=== PATIENT | male | born 1975 | race Caucasian/White ===

== ENCOUNTER 2022-12-29 09:53 | Day surgery (SDC) | payer OTHER, SELFPAY ==
[2022-09-29 11:10] VITALS: BMI 29.7
[2022-12-17 09:49] VITALS: BMI 28.5
[2022-12-29 11:45] VITALS: BP 157/101; PULSE 92; RESP 20; TEMP 36.7; O2SAT 100
[2022-12-29] MEDS: LACTATED RINGERS 1,000 ML 150 ML IV CONT (12:20)
--- NOTE | 2022-12-29 12:35 | P.PNAN_ITS ---
Anes - Initial Pre Proc Eval Procedure: Operation Date: 12/29/22 12:30 Proposed Procedures p Screening Colonoscopy - Aaron Clemons MD Date/Time: 12/29/22 12:35 Surgeon: Aaron Clemons MD Pre Op Diagnosis: History of colon polyp, Family HX colon cancer Patient Data Age: 47 Gender: M Height: 1.8 m Weight: 93.5 kg Allergies Allergy/AdvReac Type Severity Reaction Status Date / Time No Known Allergies Allergy Verified 12/29/22 11:18 Home Medications Medication Instructions Recorded Confirmed Type sodium,potassium,mag sulfates 17.5 See Rx Instructions PO .COMPLEX 09/29/22 12/29/22 Rx gram-3.13 gram-1.6 gram oral soln #354 mL (Suprep Bowel Prep Kit) Patient hx anesthesia problems: none Family hx anesthesia problems: none Results Review: All pre-operative results and documents have been reviewed as part of the pre- operative evaluation. [facility] Surgical History Surgical History (Updated 12/29/22 @ 12:35 by Gamaliel Agarwla MD) H/O colonoscopy Family History Family History Sibling Patient's brother is in good health Father Carcinoma of colon Grandparent Carcinoma of colon Social History Social History Smoking status: Never smoker Alcohol intake: never Substance use: never Substance use type: does not use Living arrangements: with family Spiritual care concerns: No Anes - Eval Final PreProcedure Day of Procedure 12/29/22 12:35 Patient weight: normal Heart: regular rate and rhythm Lungs: clear to auscultation Airway: Mallampati scale class II Neurological: alert and oriented Last oral intake: >/= 8 hours ASA classification: II Emergent: no Anesthetic plan: proceed Anesthesia type and monitoring: general GIVS and standard monitoring Results Review: All pre-operative results and documents have been reviewed as part of the pre- operative evaluation. Informed Consent: The patient's anesthetic plan and its attendant risks and benefits were discussed with the patient/family/POA. Questions were solicited and answers provided to the satisfaction of the patient/family/POA.
--- NOTE | 2022-12-29 13:36 | PM.HPGS ---
History of Present Illness History of Present Illness Consent: Risks, benefits, and alternatives have been discussed and questions answered. Patient agrees to proceed with procedure. Chief complaint: History of colon polyp, Family HX colon cancer Narrative: Moreno Goldsmith is a 47 year old male Presents for screening colonoscopy. Patient's current weight appetite and bowel movements are normal. Patient denies abdominal pain. His bowel habits are normal. Previous colonoscopy 5 years ago was unremarkable. Patient states he has had colon polyps intermittently over the last 15 or 20 years. His family history is significant that his father had colon cancer at age 51, his paternal grand mother had colon cancer at age 63 and his sibling has had colon polyps. Review of Systems Review of Systems: Review of systems noncontributory. [facility] Surgical History Surgical History (Updated 12/29/22 @ 12:35 by Gamaliel Agarwal MD) H/O colonoscopy Family History Family History Sibling Patient's brother is in good health Father Carcinoma of colon Grandparent Carcinoma of colon Social History Social History Smoking status: Never smoker Alcohol intake: never Substance use: never Substance use type: does not use Living arrangements: with family Spiritual care concerns: No Meds Home Medications and Allergies Home Medications Medication Instructions Recorded Confirmed Type sodium,potassium,mag sulfates 17.5 See Rx Instructions PO .COMPLEX 09/29/22 12/29/22 Rx gram-3.13 gram-1.6 gram oral soln #354 mL (Suprep Bowel Prep Kit) Allergies Allergy/AdvReac Type Severity Reaction Status Date / Time No Known Allergies Allergy Verified 12/29/22 11:18 Vital Signs Vital Signs - 24 hr 12/29/22 11:45 Temperature 98.1 F Pulse Rate 92 Respiratory Rate 20 Blood Pressure 157/101 H Pulse Oximetry 100 Oxygen Delivery Room Air Exam Narrative: Physical exam reveals patient to be alert. Vital signs stable. HEENT exam is unremarkable. Patient is anicteric. Lungs are clear to auscultation and percussion. Heart is without murmur or extra sounds. Abdomen bowel sounds present soft nontender with no hepatosplenomegaly. Digital external rectal exam is normal. Assessment and Plan Assessment and plan (1) History of colon polyps: Code(s): Z86.010 - Personal history of colonic polyps Status: Acute Assessment and Plan: Patient has a previous history of colon polyps. Plan for surveillance colonoscopy now and at least every 5 years in the future. (2) Family history of colon cancer in father: Code(s): Z80.0 - Family history of malignant neoplasm of digestive organs Status: Acute Assessment and Plan: Patient's father and grandmother have had colon cancer. Also a sibling has had colon polyps. Plan for surveillance colonoscopy at least every 5 years.
[2022-12-29 13:58] VITALS: BP 116/95; PULSE 62; RESP 20; O2SAT 99
--- NOTE | 2022-12-29 14:04 | WPDANESPN ---
Anes - Prog Note Post-Op Date/Time: 12/29/22 14:04 Cardiovascular status: normal Respiratory status: normal Airway patency: baseline Mental status: baseline Post-Op hydration status: normal Vital Signs: Last Vital Signs Temp 36.7 C 12/29/22 11:45 Pulse 92 12/29/22 11:45 Resp 20 12/29/22 11:45 BP 157/101 H 12/29/22 11:45 Pulse Ox 100 12/29/22 11:45 O2 Del Method Room Air 12/29/22 11:45 Pain Score (VAS): 0/10 I/O: Intake & Output 12/28/22 12/29/22 12/29/22 23:59 07:59 15:59 Intake Total 200 Balance 200 Patient Feedback: Patient satisfied with anesthetic care.
[2022-12-29 14:08] VITALS: BP 117/76; PULSE 72; RESP 20; O2SAT 99
[2022-12-29 14:18] VITALS: BP 127/95; PULSE 57; RESP 20; O2SAT 99
== END 2022-12-29 14:30 | disposition home or self-care (01) ==
PROVIDERS: Visit Provider Internal Medicine Gastroenterology
PROC: 0DJD8ZZ Inspection of Lower Intestinal Tract, Via Natural or Artificial Opening Endoscopic (ICD-10-PCS; CPT 45378; principal; 2022-12-29 12:30)
DX: Z86.010 Personal history of colon polyps (principal)
CPT/HCPCS: 45378